=== PATIENT | female | born 1995 | race Caucasian/White ===

== ENCOUNTER 2019-01-23 14:13 | Emergency (ER) | payer SELFPAY ==
[~2019-01-23] VITALS: Ht 172.7 cm; Wt 65.8 kg
--- NOTE | 2019-01-23 14:36 | NUR ---
CAME IN FOR ON AND OFF FEVER x 8 DAYS, TOOK 2 ADVIL TABS 3 HRS AGO. ALSO C/O GENERALIZED ACHES AND SORE THROAT. TO ER BED 3, HOOKED TO MONITOR, CHANGED TO HOSPITAL GOWN, PROVIDED W WARM BLANKET , PATIENT AOX 4, BREATHING EVEN AND UNLABORED. AWAITING MD GREENE.
--- NOTE | 2019-01-23 15:11 | NUR ---
PA FOSTER AT BEDSIDE
[2019-01-23] MEDS ORDERED: ACETAMINOPHEN ES 500 MG TABLET ONE (15:26)
[2019-01-23] MEDS ORDERED: IV NS 0.9% 1,000 ML BAG IV ONE (15:30)
[2019-01-23] MEDS ORDERED: ACETAMINOPHEN ES 500 MG TABLET PO ONE (15:30)
[2019-01-23 15:48] LABS: BASOPHILS # (AUTO) 0.1 /CMM (0.0-0.2); EOSINOPHILS % (AUTO) 2.6 % (0.0-6.0); HEMATOCRIT 42 % (33-45); HEMOGLOBIN 14.5 g/dL (11.5-14.8); LYMPHOCYTES # (AUTO) 3.1 /CMM (0.8-4.8); LYMPHOCYTES % (AUTO) 57.1 % (20.0-44.0); MEAN CORPUSCULAR HGB CONC 35 g/dl (31.0-36.0); MEAN CORPUSCULAR VOLUME 86 fL (82-100); MONOCYTES # (AUTO) 0.3 /CMM (0.1-1.30); NEUTROPHILS # (AUTO) 1.8 /CMM (1.8-8.9); NEUTROPHILS % (AUTO) 33.3 % (43.0-81.0); RED BLOOD CELL COUNT(AUTO) 4.88 MIL/uL (4.0-5.2); WHITE BLOOD COUNT (AUTO) 5.4 K/uL (4.3-11.0)
--- NOTE | 2019-01-23 15:56 | NUR ---
FLU SWAB AND URINE SAMPLE SENT TO LAB
[2019-01-23 16:07] LABS: CARBON DIOXIDE 25 mmol/L (21-32); CHLORIDE 103 mmol/L (98-107); CREATININE 0.7 mg/dL (0.6-1.3); GLUCOSE 85 mg/dL (74-106); POTASSIUM 4.2 mmol/L (3.5-5.1); SODIUM SERUM 139 mmol/L (136-145); UREA NITROGEN, BLOOD 6 mg/dL (7-18)
[2019-01-23 16:10] LABS: APPEARANCE,URINE Clear (CLEAR); BILIRUBIN,URINE Negative (NEGATIVE); BLOOD, URINE Large Ery/uL (NEGATIVE); COLOR,URINE Yellow (YELLOW); KETONES,URINE Negative (NEGATIVE); LEUKOCYTE ESTERASE ,URINE Negative (NEGATIVE); NITRITE, URINE Negative (NEGATIVE); PH,URINE 6.5 (5.0-8.0); PROTEIN,URINE 30 mg/dl (NEGATIVE); UGLUCOSE Negative (NEGATIVE)
[2019-01-23 16:22] LABS: ALANINE AMINOTRANSFERASE 301 U/L (12-78); ALBUMIN 3.7 g/dL (3.4-5.0); ALKALINE PHOSPHATASE 350 U/L (46-116); ASPARTATE AMINOTRANSFERASE 373 U/L (15-37); BILIRUBIN,DIRECT 0.1 mg/dL (0.0-0.2); BILIRUBIN,TOTAL 0.9 mg/dL (0.2-1.0); TOTAL PROTEIN, SERUM 8.3 g/dL (6.4-8.2)
[2019-01-23 16:43] LABS: BAND % (MANUAL) 2 % (0.0-5.0); EOSINOPHILS % (MANUAL) 2 % (0-4); LYMPHOCYTES % (MANUAL) 29 % (16-48); METAMYELOCYTES % 1 % (0-0); MONOCYTES % (MANUAL) 7 % (0-11.0); MYELOCYTES % 2 % (0-0); NEUTROPHILS % (MANUAL) 27 (42-76); PLATELET COUNT (AUTO) 133 /CMM (150-450)
[2019-01-23 16:44] LABS: REACTIVE LYMPHOCYTES 30 % (0-0)
[2019-01-23 16:45] LABS: BACTERIA,URINE Few /HPF (None Seen); SQUAMOUS EPITHELIAL CELL,UR Few /HPF (None Seen); URINE AMORPHOUS URATE Few /HPF (None Seen)
--- NOTE | 2019-01-23 17:37 | NUR ---
Note undone in EDM - 01/23/19 at 1830 by MERRICK CAME IN FOR ON AND OFF FEVER x 8 DAYS, TOOK 2 ADVIL TABS 3 HRS AGO. ALSO C/O GENERALIZED ACHES AND SORE THROAT. TO ER BED 3, HOOKED TO MONITOR, CHANGED TO HOSPITAL GOWN, PROVIDED W WARM BLANKET , PATIENT AOX 4, BREATHING EVEN AND UNLABORED. AWAITING MD GREENE.
--- NOTE | 2019-01-23 17:42 | NUR ---
GRAPHIC DESIGN PROFESSOR NOT ABLE TO DRAW BLOOD SAMPLE. MADE SANGITA QUINONEZ AWARE. GRAPHIC DESIGN PROFESSOR WILL TRY AGAIN LATER.
--- NOTE | 2019-01-23 17:52 | NUR ---
US TECH AT BEDSIDE
[2019-01-23 18:39] LABS: MONOTEST POSITIVE (NEGATIVE)
--- NOTE | 2019-01-23 18:56 | NUR ---
Patient discharged to home in stable condition. Written and verbal after care instructions given. Patient verbalizes understanding of instruction.
[2019-01-23 18:57] VITALS: BP 139/91
== END 2019-01-23 18:58 | disposition home or self-care (01) ==
LOC: ER 14:13
DX: B27.80 Other infectious mononucleosis without complication (principal); R74.0 Nonspecific elevation of levels of transaminase and lactic acid dehydrogenase [LDH]; R51 Headache; R11.2 Nausea with vomiting, unspecified; F32.9 Major depressive disorder, single episode, unspecified; F41.9 Anxiety disorder, unspecified
CPT/HCPCS: 36415; 71045; 76705; 80048; 80076; 81001; 83605; 84145; 84484; 84703; 85025; 85730; 86308; 87040 ×2; 87086; 87804 ×2; 93005; 99284; J7030; 81000-TC